=== PATIENT | female | born 1930 | race Caucasian/White ===

== ENCOUNTER 2017-09-09 15:17 | Emergency (ER) | payer MEDICARE, BC ==
[2017-09-09 18:05] LABS: ABS Basophils 0.1 10^3/ul (0-0.2); ABS Eosinophils 0.1 10^3/ul (0-0.6); ABS Lymphocytes 1.5 10^3/ul (1.0-4.8); ABS Monocytes 0.9 10^3/ul (0-0.8); ABS Neutrophils 5.4 10^3/ul (1.5-7.7); ABS Nucleated RBC 0 10^3/ul; Eosinophil % 1.7 % (0-6); Hematocrit 35 % (35-47); Hemoglobin 11.7 g/dl (12.0-16.0); Lymphocyte % 18.7 % (25-47); Mean Corpuscular HGB Conc 34 g/dl (31-36); Mean Corpuscular Hemoglobin 32 pg (27-31); Mean Corpuscular Volume 94 fL (80-97); Mean Platelet Volume 9.3 um3 (7.4-10.4); Nucleated Red Blood Cells % 0; Platelet Count 173 10^3/ul (150-450); Red Blood Count 3.69 10^6/ul (4.0-5.4); Red Cell Distribution Width 14 % (10.5-15)
[2017-09-09 18:18] LABS: EGFR Non-African American 54.8 (>60)
--- NOTE | 2017-09-09 19:07 | RAD ---
HISTORY: Sudden onset dizziness COMPARISONS: July 31, 2014 TECHNIQUE: Multiple contiguous axial CT scans were obtained of the head without intravenous contrast. FINDINGS: HEMORRHAGE/INFARCT: There is no hemorrhage or acute infarct. MASSES/SHIFT: There is no mass or shift. EXTRA-AXIAL SPACES: There are no extra-axial fluid collections. SULCI AND VENTRICLES: The sulci and ventricles are normal in size and position for the patient's stated age. CEREBRUM: There is hypoattenuation of the periventricular and subcortical white matter. There is encephalomalacia of the right frontal lobe and left anterior parietal lobe consistent with remote infarct BRAINSTEM: There are no focal parenchymal abnormalities. CEREBELLUM: There are chronic appearing infarcts of the right inferior cerebellum VESSELS: The vessels are grossly normal. PARANASAL SINUSES: There is opacification of the left ethmoid air cells and left maxillary sinus. There is osteitis of the surrounding bone. ORBITS: The orbits are unremarkable. BONES AND SOFT TISSUE: No bone or soft tissue abnormalities are noted. OTHER: None IMPRESSION: NO ACUTE INTRACRANIAL PATHOLOGY. 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 FINDINGS SUGGESTIVE OF LEFT MAXILLARY AND ETHMOID CHRONIC SINUSITIS
[2017-09-09 19:40] LABS: Urine Appearance Clear; Urine Blood Negative (Negative); Urine Color Straw; Urine Ketones Trace (Negative); Urine Protein Negative (Negative); Urine Specific Gravity 1.003 (1.010-1.030); Urine Urobilinogen Negative (Negative)
--- NOTE | 2017-09-09 20:47 | ED ---
Dizziness - HPI Summary HPI Summary: Complains of sudden onset dizziness only with standing and blurred vision starting this a.m. patient unable to say if symptoms were constant or intermittent. Symptoms have resolved by time of provider exam day. Patient also saw ophthalmology for the blurred vision today and was sent to the ED for further evaluation. Denies focal deficits, MEDEROS, change in mental status, facial droop, speech changes, fever, cough, sore throat, CP, SOB, N/V/D, abdominal pain , change in urinary BM. Denies history of dizziness for blurred vision. Medical history is HTN, A. fib, TIA, CVA, IBS. On ASA. - History Of Current Complaint Chief Complaint: EDDizziness Stated Complaint: DIZZY/TROUBLE WITH VISION Time Seen by Provider: 09/09/17 17:33 Hx Obtained From: Patient, Family/Criminal Justice Teacher - Allergies/Home Medications Allergies/Adverse Reactions: Allergies Allergy/AdvReac Type Severity Reaction Status Date / Time No Known Allergies Allergy Verified 12/25/15 14:17 Home Medications: Home Medications Aspirin EC TAB* [Ecotrin EC Low Dose 81 MG*] 81 mg PO DAILY 09/09/17 [History Confirmed 09/09/17] Atenolol TAB* [Tenormin TAB* 25 MG] 12.5 mg PO DAILY 09/09/17 [History Confirmed 09/09/17] Cyanocobalamin INJ * [Vitamin B12 INJ *] 1,000 mcg IM MONTHLY 09/09/17 [History Confirmed 09/09/17] Gabapentin CAP(*) [Neurontin 100 mg CAP(*)] 100 mg PO Q8HR PRN 09/09/17 [ History Confirmed 09/09/17] Ibuprofen TAB* [Advil TAB*] 400 mg PO Q6H PRN 09/09/17 [History Confirmed ] Vit A/Vit C/Vit E/Zinc/Copper [Preservision Areds Softgel] 1 cap PO BID [History Confirmed 09/09/17] methylPREDNISolone TAB* [Medrol TAB*] 4 mg PO SEE INSTRUCTIONS 09/09/17 [ History Confirmed 09/09/17] PMH/Surg Hx/FS Hx/Imm Hx Endocrine/Hematology History: Denies: Hx Diabetes, Hx Systemic Lupus Erythematosus Cardiovascular History: Denies: Hx Congestive Heart Failure, Hx Hypertension, Hx Pacemaker/ICD Respiratory History: Reports: Other Respiratory Problems/Disorders - post nasal drip w/ freq cough year aroung Denies: Hx Asthma, Hx Chronic Obstructive Pulmonary Disease (COPD) GI History: Reports: Other GI Disorders - "prone to diarrhea" History: Reports: Other Problems/Disorders - 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 Generalized arthritis Denies: Hx Rheumatoid Arthritis Sensory History: Reports: Hx Cataracts Denies: Hx Hearing Aid Opthamlomology History: Reports: Hx Cataracts Neurological History: Reports: Other Neuro Impairments/Disorders - seizures in teens-resolved in 20's Psychiatric History: Denies: Hx Panic Disorder - Cancer History Hx Chemotherapy: No - Surgical History Surgery Procedure, Year, and Place: appendectomy, childhood; hysterectomy in Infectious Disease History: No Infectious Disease History: Denies: Traveled Outside the [place] in Last 30 Days - Family History Known Family History: Positive: Other - No FHx of Ebola - Social History Alcohol Use: None Alcohol Amount: 1/2 bottle wine per day Substance Use Type: Reports: None Hx Tobacco Use: No Smoking Status (MU): Never Smoked Tobacco Review of Systems Constitutional: Negative Positive: Blurred Vision ENT: Negative Cardiovascular: Negative Respiratory: Negative Gastrointestinal: Negative Genitourinary: Negative Musculoskeletal: Negative Skin: Negative Neurological: Other Psychological: Normal All Other Systems Reviewed And Are Negative: Yes Physical Exam Triage Information Reviewed: Yes Vital Signs On Initial Exam: Initial Vitals Temp Pulse Resp BP Pulse Ox 98.5 F 85 15 135/71 98 09/09/17 15:42 09/09/17 15:42 09/09/17 15:42 09/09/17 15:42 09/09/17 15:42 Vital Signs Reviewed: Yes Appearance: Positive: Well-Appearing Skin: Positive: Warm Head/Face: Positive: Normal Head/Face Inspection Eyes: Positive: Normal Neck: Positive: Supple Respiratory/Lung Sounds: Positive: Clear to Auscultation Cardiovascular: Positive: Normal Abdomen Description: Positive: Nontender Musculoskeletal: Positive: Normal Neurological: Positive: Normal Psychiatric: Positive: Normal AVPU Assessment: Alert - Skye Coma Scale Best Eye Response: 4 - Spontaneous Best Motor Response: 6 - Obeys Commands Best Verbal Response: 5 - Oriented Coma Scale Total: 15 Diagnostics - Vital Signs Vital Signs Temp Pulse Resp BP Pulse Ox 09/09/17 15:42 98.5 F 85 15 135/71 98 - Laboratory Lab Results: Lab Results 09/09/17 09/09/17 09/09/17 Range/Units 17:49 17:49 17:49 WBC 8.0 (3.5-10.8) 10^3/ul RBC 3.69 L (4.0-5.4) 10^6/ul Hgb 11.7 L (12.0-16.0) g/dl Hct 35 (35-47) % MCV 94 (80-97) fL MCH 32 H (27-31) pg MCHC 34 (31-36) g/dl RDW 14 (10.5-15) % Plt Count 173 (150-450) 10^3/ul MPV 9.3 (7.4-10.4) um3 Neut % (Auto) 67.1 (38-83) % Lymph % (Auto) 18.7 L (25-47) % [place] % (Auto) 11.4 H (0-7) % Eos % (Auto) 1.7 (0-6) % Baso % (Auto) 1.1 (0-2) % Absolute Neuts (auto) 5.4 (1.5-7.7) 10^3/ul Absolute Lymphs (auto) 1.5 (1.0-4.8) 10^3/ul Absolute Monos (auto) 0.9 H (0-0.8) 10^3/ul Absolute Eos (auto) 0.1 (0-0.6) 10^3/ul Absolute Basos (auto) 0.1 (0-0.2) 10^3/ul Absolute Nucleated RBC 0 10^3/ul Nucleated RBC % 0 Sodium 131 L (139-145) mmol/L Potassium 4.0 (3.5-5.0) mmol/L Chloride 97 L (101-111) mmol/L Carbon Dioxide 25 (22-32) mmol/L Anion Gap 9 (2-11) mmol/L BUN 18 (6-24) mg/dL Creatinine 0.96 H (0.51-0.95) mg/dL Est GFR ( Amer) 70.5 (>60) Est GFR (Non-Af Amer) 54.8 (>60) BUN/Creatinine Ratio 18.8 (8-20) Glucose 90 (70-100) mg/dL Lactic Acid 1.1 (0.5-2.0) mmol/L Calcium 9.4 (8.6-10.3) mg/dL Total Bilirubin 0.50 (0.2-1.0) mg/dL AST 17 (13-39) U/L ALT 8 (7-52) U/L Alkaline Phosphatase 51 (34-104) U/L C-Reactive Protein 5.76 H (< 5.00) mg/L Total Protein 6.7 (6.4-8.9) g/dL Albumin 4.0 (3.2-5.2) g/dL Globulin 2.7 (2-4) g/dL Albumin/Globulin Ratio 1.5 (1-3) Urine Color Urine Appearance Urine pH (5-9) Ur Specific [place] (1.010-1.030) Urine Protein (Negative) Urine Ketones (Negative) Urine Blood (Negative) Urine Nitrate (Negative) Urine Bilirubin (Negative) Urine Urobilinogen (Negative) Ur Leukocyte Esterase (Negative) Urine WBC (Auto) (Absent) Urine RBC (Auto) (Absent) Ur Squamous Epith Cells (Absent) Urine Bacteria (Absent) Urine Glucose (Negative) 09/09/17 Range/Units 19:18 WBC (3.5-10.8) 10^3/ul RBC (4.0-5.4) 10^6/ul Hgb (12.0-16.0) g/dl Hct (35-47) % MCV (80-97) fL MCH (27-31) pg MCHC (31-36) g/dl RDW (10.5-15) % Plt Count (150-450) 10^3/ul MPV (7.4-10.4) um3 Neut % (Auto) (38-83) % Lymph % (Auto) (25-47) % [place] % (Auto) (0-7) % Eos % (Auto) (0-6) % Baso % (Auto) (0-2) % Absolute Neuts (auto) (1.5-7.7) 10^3/ul Absolute Lymphs (auto) (1.0-4.8) 10^3/ul Absolute Monos (auto) (0-0.8) 10^3/ul Absolute Eos (auto) (0-0.6) 10^3/ul Absolute Basos (auto) (0-0.2) 10^3/ul Absolute Nucleated RBC 10^3/ul Nucleated RBC % Sodium (139-145) mmol/L Potassium (3.5-5.0) mmol/L Chloride (101-111) mmol/L Carbon Dioxide (22-32) mmol/L Anion Gap (2-11) mmol/L BUN (6-24) mg/dL Creatinine (0.51-0.95) mg/dL Est GFR ( Amer) (>60) Est GFR (Non-Af Amer) (>60) BUN/Creatinine Ratio (8-20) Glucose (70-100) mg/dL Lactic Acid (0.5-2.0) mmol/L Calcium (8.6-10.3) mg/dL Total Bilirubin (0.2-1.0) mg/dL AST (13-39) U/L ALT (7-52) U/L Alkaline Phosphatase (34-104) U/L C-Reactive Protein (< 5.00) mg/L Total Protein (6.4-8.9) g/dL Albumin (3.2-5.2) g/dL Globulin (2-4) g/dL Albumin/Globulin Ratio (1-3) Urine Color Straw Urine Appearance Clear Urine pH 6.0 (5-9) Ur Specific [place] 1.003 L (1.010-1.030) Urine Protein Negative (Negative) Urine Ketones Trace A (Negative) Urine Blood Negative (Negative) Urine Nitrate Negative (Negative) Urine Bilirubin Negative (Negative) Urine Urobilinogen Negative (Negative) Ur Leukocyte Esterase 3+ A (Negative) Urine WBC (Auto) 3+(>20/hpf) A (Absent) Urine RBC (Auto) Trace(0-2/hpf) (Absent) Ur Squamous Epith Cells Present A (Absent) Urine Bacteria 1+ A (Absent) Urine Glucose Negative (Negative) Result Diagrams: 09/09/17 17:49 09/09/17 17:49 Lab Statement: Any lab studies that have been ordered have been reviewed, and results considered in the medical decision making process. - CT brain CT Interpretation: No Acute Changes CT Interpretation Completed By: Radiologist Dizzy Course/Dx - Course Course Of Treatment: Complains of sudden onset dizziness only with standing and blurred vision starting this a.m. patient unable to say if symptoms were constant or intermittent. Symptoms have resolved by time of provider examinee day. Patient also saw ophthalmology for blurred vision today and was sent to the ED for further evaluation. Denies focal deficits, MEDEROS, change in mental status, facial droop, speech changes, fever, cough, sore throat, CP, SOB, N/V/D , abdominal pain, change in urinary BM. Medical history is HTN, A. fib, TIA, CVA, IBS. Physical exam unremarkable. Neuro exam unremarkable. No symptoms here in the ED. Labs and imaging unremarkable except for UTI. Orthostatic positive. Patient refuses to ambulate here in ED, states her legs feel weak bilaterally. Baseline ambulates with cane. However patient is from assisted living with access to 24/7 assistance. Patient has been warned of potential for fall and possible subsequent hip fracture. Patient states she will call for assistance whenever she needs to ambulate until she is stable again. Caregiver is here with patient and also agrees to plan. Rx for Cipro - Diagnoses Provider Diagnoses: UTI (urinary tract infection) Discharge - Sign-Out/Discharge Documenting (check all that apply): Discharge/Admit/Transfer - Discharge Plan Condition: Stable Disposition: HOME Prescriptions: Ciprofloxacin HCl [Cipro] 500 mg PO BID 10 Days #20 tablet Patient Education Materials: Urinary Tract Infection in Women (ED), Urinary Tract Infection in Older Adults (ED) Referrals: Bette Park MD [Primary Care Provider] - Additional Instructions: Take antibiotics as directed. Follow-up with primary care. Return to the ED for any new or worsening symptoms - Billing Disposition and Condition Condition: STABLE Disposition: HOME
[2017-09-09] MEDS ORDERED: Ciprofloxacin TAB* 250 MG PO ONE ×2 (20:57→21:25)
[2017-09-09 21:34] VITALS: BP 131/67
--- NOTE | 2017-09-11 07:12 | ED ---
Progress - Progress Note Progress Note: Patient's preliminary urine culture reveals greater than 100,000 Escherichia coli. She was discharged with ciprofloxacin. No change in treatment at this time. Final results pending. Course/Dx - Course Course Of Treatment: Complains of sudden onset dizziness only with standing and blurred vision starting this a.m. patient unable to say if symptoms were constant or intermittent. Symptoms have resolved by time of provider examinee day. Patient also saw ophthalmology for blurred vision today and was sent to the ED for further evaluation. Denies focal deficits, MEDEROS, change in mental status, facial droop, speech changes, fever, cough, sore throat, CP, SOB, N/V/D , abdominal pain, change in urinary BM. Medical history is HTN, A. fib, TIA, CVA, IBS. Physical exam unremarkable. Neuro exam unremarkable. No symptoms here in the ED. Labs and imaging unremarkable except for UTI. Orthostatic positive. Patient refuses to ambulate here in ED, states her legs feel weak bilaterally. Baseline ambulates with cane. However patient is from assisted living with access to 24/7 assistance. Patient has been warned of potential for fall and possible subsequent hip fracture. Patient states she will call for assistance whenever she needs to ambulate until she is stable again. Caregiver is here with patient and also agrees to plan. Rx for Cipro - Diagnoses Provider Diagnoses: UTI (urinary tract infection) Discharge - Sign-Out/Discharge Documenting (check all that apply): Post-Discharge Follow Up - Discharge Plan Condition: Stable Disposition: HOME Prescriptions: Ciprofloxacin HCl [Cipro] 500 mg PO BID 10 Days #20 tablet Patient Education Materials: Urinary Tract Infection in Women (ED), Urinary Tract Infection in Older Adults (ED) Referrals: Bette Park MD [Primary Care Provider] - Additional Instructions: Take antibiotics as directed. Follow-up with primary care. Return to the ED for any new or worsening symptoms - Billing Disposition and Condition Condition: STABLE Disposition: HOME
== END 2017-09-09 21:33 | disposition home or self-care (01) ==
LOC: ED 15:17
DX: N39.0 Urinary tract infection, site not specified (principal); R42 Dizziness and giddiness; H53.8 Other visual disturbances; I10 Essential (primary) hypertension; I48.91 Unspecified atrial fibrillation; K58.9 Irritable bowel syndrome, unspecified; Z86.73 Personal history of transient ischemic attack (TIA), and cerebral infarction without residual deficits
CPT/HCPCS: 36415; 70450; 80053; 81003; 81015; 83605; 85025; 86140; 87077; 87086; 87186; 99282; A9270-GY

== ENCOUNTER 2017-09-26 11:11 | Emergency (ER) | payer MEDICARE, BC ==
[2017-09-26] MEDS ORDERED: NS 0.9% 1000 ML* 1,000 ML IV ONE (12:21)
--- NOTE | 2017-09-26 13:00 | RAD ---
HISTORY: SYNCOPE COMPARISONS: December 26, 2015 VIEWS: 1: frontal portable view of the chest at 12:44 PM FINDINGS: LINES AND TUBES: None. CARDIOMEDIASTINAL SILHOUETTE: The cardiomediastinal silhouette is normal for portable technique. PLEURA: The costophrenic angles are sharp. No pleural abnormalities are noted. LUNG PARENCHYMA: There is hyperinflation. ABDOMEN: The upper abdomen is clear. There is no subphrenic gas. BONES AND SOFT TISSUES: There is a scoliotic curvature of the spine. IMPRESSION: NO ACTIVE CARDIOPULMONARY DISEASE.
[2017-09-26 13:07] LABS: ABS Basophils 0.1 10^3/ul (0-0.2); ABS Eosinophils 0.1 10^3/ul (0-0.6); ABS Lymphocytes 0.8 10^3/ul (1.0-4.8); ABS Monocytes 0.7 10^3/ul (0-0.8); ABS Neutrophils 8.5 10^3/ul (1.5-7.7); ABS Nucleated RBC 0 10^3/ul; Eosinophil % 1.3 % (0-6); Hematocrit 34 % (35-47); Hemoglobin 11.3 g/dl (12.0-16.0); Lymphocyte % 8.1 % (25-47); Mean Corpuscular HGB Conc 34 g/dl (31-36); Mean Corpuscular Hemoglobin 32 pg (27-31); Mean Corpuscular Volume 95 fL (80-97); Mean Platelet Volume 9.4 um3 (7.4-10.4); Nucleated Red Blood Cells % 0.1; Platelet Count 149 10^3/ul (150-450); Red Blood Count 3.54 10^6/ul (4.00-5.40); Red Cell Distribution Width 15 % (10.5-15); White Blood Count 10.2 10^3/ul (3.5-10.8)
[2017-09-26 13:16] LABS: INR 0.93 (0.77-1.02)
[2017-09-26 13:27] LABS: EGFR Non-African American 53.4 (>60)
[2017-09-26 13:38] VITALS: BP 156/81
--- NOTE | 2017-09-26 18:20 | ED ---
Efren Rose Jade, scribed for Ramos Benito MD on 09/26/17 at 1222 . Syncope/Near Syncope - HPI Summary HPI Summary: Pt is an 87 y/o female BIBA s/p syncope. She was at religious when the episode occurred at 10:30. Pt is unsure if she had LOC, but as per witnesses there was LOC. Unsure of She had a normal BM at the time of the incident. Pt now feels cold, but otherwise fine. She denies CP, racing heart, irregular heart beat, runny nose, sore throat, abdominal pain, dysuria, or unilateral weakness. Pt states she ate this morning. PMHx AFib, depression, CVD, alcoholism, and vertigo problems. - History Of Current Complaint Chief Complaint: EDSyncope Time Seen by Provider: 09/26/17 11:59 Hx Obtained From: Patient, Family/Technician Telecommunication Systems - Friend Onset/Duration: Sudden Onset, Resolved Timing: Intermittent Episode Lasting - Unsure Context: Witnessed Activity At Onset: Other - Sitting at religious Aggravating Factor(s): Exertion - Tried to stand up - Allergies/Home Medications Allergies/Adverse Reactions: Allergies Allergy/AdvReac Type Severity Reaction Status Date / Time No Known Allergies Allergy Verified 12/25/15 14:17 PMH/Surg Hx/FS Hx/Imm Hx Endocrine/Hematology History: Denies: Hx Diabetes, Hx Systemic Lupus Erythematosus Cardiovascular History: Denies: Hx Congestive Heart Failure, Hx Hypertension, Hx Pacemaker/ICD Respiratory History: Reports: Other Respiratory Problems/Disorders - post nasal drip w/ freq cough year aroung Denies: Hx Asthma, Hx Chronic Obstructive Pulmonary Disease (COPD) GI History: Reports: Other GI Disorders - "prone to diarrhea" History: Reports: Other Problems/Disorders - 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 Generalized arthritis Denies: Hx Rheumatoid Arthritis Sensory History: Reports: Hx Cataracts Denies: Hx Hearing Aid Opthamlomology History: Reports: Hx Cataracts Neurological History: Reports: Other Neuro Impairments/Disorders - seizures in teens-resolved in 20's Psychiatric History: Reports: Hx Depression, Hx Substance Abuse - Alcoholism Denies: Hx Panic Disorder - Cancer History Hx Chemotherapy: No - Surgical History Surgery Procedure, Year, and Place: appendectomy, childhood; hysterectomy in 28 's Infectious Disease History: No Infectious Disease History: Denies: Traveled Outside the [place] in Last 30 Days - Family History Known Family History: Positive: Other - No FHx of Ebola - Social History Alcohol Use: None Alcohol Amount: 1/2 bottle wine per day Substance Use Type: Reports: None Hx Tobacco Use: No Smoking Status (MU): Never Smoked Tobacco Review of Systems Negative: Sore Throat, Nasal Discharge Cardiovascular: Negative - Racing heart, irregular heart beat Negative: Chest Pain Negative: Abdominal Pain Negative: dysuria Positive: Syncope - S/P. Negative: Weakness - Unilateral All Other Systems Reviewed And Are Negative: Yes Physical Exam - Summary Physical Exam Summary: General: well-appearing, no pain distress Skin: warm, color reflects adequate perfusion, dry Head: normal Eyes: EOMI, JADE ENT: normal. Hearing aids present. Neck: supple, nontender Respiratory: CTA, breath sounds present Cardiovascular: RRR Abdomen: soft, nontender Bowel: present Musculoskeletal: normal, strength/ROM intact Neurological: sensory/motor intact, A&O x3 Psychological: affect/mood appropriate GCS: 15 Triage Information Reviewed: Yes Vital Signs On Initial Exam: Initial Vitals Temp Pulse Resp BP Pulse Ox 98.2 F 58 18 102/58 99 09/26/17 11:26 09/26/17 11:26 09/26/17 11:26 09/26/17 11:26 09/26/17 11:26 Vital Signs Reviewed: Yes Diagnostics - Vital Signs Vital Signs Temp Pulse Resp BP Pulse Ox 09/26/17 11:26 98.2 F 58 18 102/58 99 - Laboratory Lab Results: Lab Results 09/26/17 09/26/17 09/26/17 Range/Units 13:01 13:01 13:01 WBC (3.5-10.8) 10^3/ul RBC (4.00-5.40) 10^6/ul Hgb (12.0-16.0) g/dl Hct (35-47) % MCV (80-97) fL MCH (27-31) pg MCHC (31-36) g/dl RDW (10.5-15) % Plt Count (150-450) 10^3/ul MPV (7.4-10.4) um3 Neut % (Auto) (38-83) % Lymph % (Auto) (25-47) % [place] % (Auto) (0-7) % Eos % (Auto) (0-6) % Baso % (Auto) (0-2) % Absolute Neuts (auto) (1.5-7.7) 10^3/ul Absolute Lymphs (auto) (1.0-4.8) 10^3/ul Absolute Monos (auto) (0-0.8) 10^3/ul Absolute Eos (auto) (0-0.6) 10^3/ul Absolute Basos (auto) (0-0.2) 10^3/ul Absolute Nucleated RBC 10^3/ul Nucleated RBC % INR (Anticoag Therapy) 0.93 (0.77-1.02) APTT 30.4 (26.0-36.3) seconds Sodium 137 (135-145) mmol/L Potassium 4.7 (3.5-5.0) mmol/L Chloride 107 (101-111) mmol/L Carbon Dioxide 25 (22-32) mmol/L Anion Gap 5 (2-11) mmol/L BUN 21 (6-24) mg/dL Creatinine 0.98 H (0.51-0.95) mg/dL Est GFR ( Amer) 68.7 (>60) Est GFR (Non-Af Amer) 53.4 (>60) BUN/Creatinine Ratio 21.4 H (8-20) Glucose 114 H (70-100) mg/dL Lactic Acid (0.5-2.0) mmol/L Calcium 8.4 L (8.6-10.3) mg/dL Magnesium 1.7 L (1.9-2.7) mg/dL Total Bilirubin 0.50 (0.2-1.0) mg/dL AST 16 (13-39) U/L ALT 10 (7-52) U/L Alkaline Phosphatase 48 (34-104) U/L Total Creatine Kinase 22 (10-223) U/L CK-MB (CK-2) 1.1 (0.6-6.3) ng/mL Troponin I 0.01 (<0.04) ng/mL C-Reactive Protein 5.34 H (< 5.00) mg/L B-Natriuretic Peptide 393 H ( - 100) pg/mL Total Protein 5.6 L (6.4-8.9) g/dL Albumin 3.3 (3.2-5.2) g/dL Globulin 2.3 (2-4) g/dL Albumin/Globulin Ratio 1.4 (1-3) TSH 0.82 (0.34-5.60) mcIU/mL 09/26/17 09/26/17 Range/Units 13:01 13:01 WBC 10.2 (3.5-10.8) 10^3/ul RBC 3.54 L (4.00-5.40) 10^6/ul Hgb 11.3 L (12.0-16.0) g/dl Hct 34 L (35-47) % MCV 95 (80-97) fL MCH 32 H (27-31) pg MCHC 34 (31-36) g/dl RDW 15 (10.5-15) % Plt Count 149 L (150-450) 10^3/ul MPV 9.4 (7.4-10.4) um3 Neut % (Auto) 82.9 (38-83) % Lymph % (Auto) 8.1 L (25-47) % [place] % (Auto) 6.8 (0-7) % Eos % (Auto) 1.3 (0-6) % Baso % (Auto) 0.9 (0-2) % Absolute Neuts (auto) 8.5 H (1.5-7.7) 10^3/ul Absolute Lymphs (auto) 0.8 L (1.0-4.8) 10^3/ul Absolute Monos (auto) 0.7 (0-0.8) 10^3/ul Absolute Eos (auto) 0.1 (0-0.6) 10^3/ul Absolute Basos (auto) 0.1 (0-0.2) 10^3/ul Absolute Nucleated RBC 0 10^3/ul Nucleated RBC % 0.1 INR (Anticoag Therapy) (0.77-1.02) APTT (26.0-36.3) seconds Sodium (135-145) mmol/L Potassium (3.5-5.0) mmol/L Chloride (101-111) mmol/L Carbon Dioxide (22-32) mmol/L Anion Gap (2-11) mmol/L BUN (6-24) mg/dL Creatinine (0.51-0.95) mg/dL Est GFR ( Amer) (>60) Est GFR (Non-Af Amer) (>60) BUN/Creatinine Ratio (8-20) Glucose (70-100) mg/dL Lactic Acid 1.0 (0.5-2.0) mmol/L Calcium (8.6-10.3) mg/dL Magnesium (1.9-2.7) mg/dL Total Bilirubin (0.2-1.0) mg/dL AST (13-39) U/L ALT (7-52) U/L Alkaline Phosphatase (34-104) U/L Total Creatine Kinase (10-223) U/L CK-MB (CK-2) (0.6-6.3) ng/mL Troponin I (<0.04) ng/mL C-Reactive Protein (< 5.00) mg/L B-Natriuretic Peptide ( - 100) pg/mL Total Protein (6.4-8.9) g/dL Albumin (3.2-5.2) g/dL Globulin (2-4) g/dL Albumin/Globulin Ratio (1-3) TSH (0.34-5.60) mcIU/mL Result Diagrams: 09/26/17 13:01 09/26/17 13:01 Lab Statement: Any lab studies that have been ordered have been reviewed, and results considered in the medical decision making process. - Radiology CXR Xray Interpretation: No Acute Changes - NO ACTIVE CARDIOPULMONARY DISEASE. ED physician reviewed radiology report. Radiology Interpretation Completed By: Radiologist - EKG 12:27 Cardiac Rate: Bradycardia - 55 bpm EKG Rhythm: Sinus Rhythm ST Segment: Normal EKG Interpretation: Prolonged IA interval at 266 Course/Dx Course Of Treatment: DISCUSSED RESULTS WITH THE PATIENT. SHE DENIES ANY CHEST PAIN OR PALPITATIONS. SHE DECLINED ADMISSION. F/U PMD; RETURN IF WORSE. - Diagnoses Provider Diagnoses: Syncope Discharge - Sign-Out/Discharge Documenting (check all that apply): Discharge/Admit/Transfer - Discharge - Discharge Plan Condition: Stable Disposition: HOME Patient Education Materials: Syncope (ED) Referrals: Bette Park MD [Primary Care Provider] - Additional Instructions: FOLLOW UP WITH DR YARBROUGH. RETURN TO THE EMERGENCY DEPARTMENT FOR ANY WORSENING OF YOUR CONDITION; CHEST PAIN, SHORTNESS OF BREATH, YOU FEEL ILL OR QUESTIONS OR CONCERNS. - Billing Disposition and Condition Condition: STABLE Disposition: Home The documentation as recorded by the Efren syed Jade accurately reflects the service I personally performed and the decisions made by me, Ramos Benito MD.
== END 2017-09-26 14:05 | disposition home or self-care (01) ==
LOC: ED 11:11
DX: R55 Syncope and collapse (principal); I48.91 Unspecified atrial fibrillation; F32.9 Major depressive disorder, single episode, unspecified; I25.10 Atherosclerotic heart disease of native coronary artery without angina pectoris; R42 Dizziness and giddiness; F10.20 Alcohol dependence, uncomplicated; Z86.12 Personal history of poliomyelitis
CPT/HCPCS: 36415; 71045; 80053; 82550; 82553; 83605; 83735; 83880; 84443; 84484; 85025; 85610; 85730; 86140; 93005; 99284

== ENCOUNTER 2018-07-27 11:27 | Emergency (ER) | payer MEDICARE, BC ==
--- NOTE | 2018-07-27 11:34 | ED ---
Shortness of Breath - HPI Summary HPI Summary: An 87 y/o F brought in by ambulance presents to ED with c/o SOB onset yesterday. Alleviating factors: rest. She also has L wrist swelling for past week. She denies fall or trauma. Denies fever, chills, cough, CP. Per EMS, her O2 sat was in the low 80s en route, they placed her on 2L O2. Per daughter, the patient's BP has been low this past week. She was on Atenolol, but Dr. Park, PCP, took her off it. PMHx: a-fib, stroke, denies respiratory hx. Non-smoker. Daily wine. - History of Current Complaint Hx Obtained From: Patient, Family/Rn Pacu - daughter, EMS Onset/Duration: Lasting Days - yesterday, Still Present Timing: Constant Current Severity: Mild Dyspnea At: Exertion Alleviating Factors: Other - rest Associated Signs & Symptoms: Edema - L wrist swelling - Allergy/Home Medications Allergies/Adverse Reactions: Allergies Allergy/AdvReac Type Severity Reaction Status Date / Time No Known Allergies Allergy Verified 10/21/17 14:24 Home Medications: Home Medications Apixaban* [Eliquis*] 2.5 mg PO BID 07/27/18 [History Confirmed 07/27/18] Calcium Polycarbophil TAB* [Fibercon TAB*] 1,875 mg PO DAILY 07/27/18 [History Confirmed 07/27/18] Cyanocobalamin (Vitamin B-12) [B-12] 2,500 mcg PO DAILY 07/27/18 [History Confirmed 07/27/18] Diphenoxylat/Atrop 2.5-0.025M* [Lomotil TAB*] 1 tab PO Q4HR PRN 07/27/18 [ History Confirmed 07/27/18] Ondansetron ODT TAB* [Zofran 4 MG Odt TAB*] 4 mg PO BID PRN 07/27/18 [History Confirmed 07/27/18] PMH/Surg Hx/FS Hx/Imm Hx Previously Healthy: No Endocrine/Hematology History: Denies: Hx Diabetes, Hx Systemic Lupus Erythematosus Cardiovascular History: Reports: Hx Atrial Fibrillation Denies: Hx Congestive Heart Failure, Hx Hypertension, Hx Pacemaker/ICD Respiratory History: Reports: Other Respiratory Problems/Disorders - post nasal drip w/ freq cough year aroung Denies: Hx Asthma, Hx Chronic Obstructive Pulmonary Disease (COPD) GI History: Reports: Other GI Disorders - "prone to diarrhea" History: Reports: Other Problems/Disorders - 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 Generalized arthritis Denies: Hx Rheumatoid Arthritis Sensory History: Reports: Hx Cataracts, Hx Hearing Aid Opthamlomology History: Reports: Hx Cataracts Neurological History: Reports: Other Neuro Impairments/Disorders - seizures in teens-resolved in 20's Psychiatric History: Reports: Hx Depression, Hx Substance Abuse - Alcoholism Denies: Hx Panic Disorder - Cancer History Hx Chemotherapy: No - Surgical History Surgery Procedure, Year, and Place: appendectomy, childhood;. hysterectomy in s - Family History Known Family History: Positive: Other - No FHx of Ebola - Social History Occupation: Retired Lives: At [facility] [employer] Alcohol Use: Daily Alcohol Amount: 1/2 bottle wine per day Hx Substance Use: No Substance Use Type: Reports: None Hx Tobacco Use: No Smoking Status (MU): Never Smoked Tobacco Review of Systems Negative: Fever, Chills Negative: Chest Pain Positive: Shortness Of Breath. Negative: Cough Musculoskeletal: Other - pos: L wrist edema All Other Systems Reviewed And Are Negative: Yes Physical Exam - Summary Physical Exam Summary: Appearance: Well-appearing, Well-nourished, elderly F lying in bed comfortably in no apparent distress Skin: Warm, dry, no obvious rash Eyes: sclera anicteric, no conjunctival pallor ENT: mucous membranes moist, pharynx appears normal Neck: Supple, nontender Respiratory: Clear to auscultation, no signs of respiratory distress Cardiovascular: Irregular rhythm but normal rate. Normal S1, S2. No murmurs. Normal distal pulses in tibial and radial bilaterally. Abdomen: Soft, nontender, normal active bowel sounds present Musculoskeletal: Normal, Strength/ROM Intact. L wrist is swollen, erythematous and warm. Neurological: A&Ox3, awake and alert, mentation is normal, speech is fluent and appropriate Psychiatric: affect is normal, does not appear anxious or depressed Triage Information Reviewed: Yes Vital Signs Reviewed: Yes Diagnostics - Laboratory Result Diagrams: 07/27/18 12:11 07/27/18 12:11 Lab Statement: Any lab studies that have been ordered have been reviewed, and results considered in the medical decision making process. - Radiology L WRIST Radiology Interpretation Completed By: Radiologist Summary of Radiographic Findings: IMPRESSION: OSTEOPENIA. OSTEOARTHRITIS. NO ACUTE OSSEOUS INJURY. IF SYMPTOMS PERSIST, RECOMMEND REPEAT IMAGING. ED provider has reviewed this report. CXR Radiology Interpretation Completed By: Radiologist Summary of Radiographic Findings: IMPRESSION: No active cardiopulmonary disease. ED provider has reviewed this report. - CT Chest CTA CT Interpretation Completed By: Radiologist Summary of CT Findings: IMPRESSION: 1. NO PULMONARY ARTERIAL FILLING DEFECT TO SUGGEST PULMONARY EMBOLISM. 2. CARDIOMEGALY. 3. SMALL PERICARDIAL EFFUSION. 4. ATHEROSCLEROSIS. 5. TRACE BILATERAL PLEURAL EFFUSIONS. ED provider has reviewed this report. - EKG 1144 Cardiac Rate: NL - 84 bpm EKG Rhythm: Atrial Flutter - consistent with variable block Re-Evaluation - Re-Evaluation 1 Re-Evaluation Time: 12:50 Comment: Discussing results with pt and daughter. 2 Re-Evaluation Time: 13:57 Comment: Discussing CTA results with pt. 3 Re-Evaluation Time: 14:15 Comment: Discussing consult with Dr. Barker (Dr. Park is out of town) and plan for discharge. Course/Dx - Course Course Of Treatment: Pt is an 87 y/o F presenting with SOB onset yesterday and L wrist swelling. She denies fall, trauma. Lab work shows Ddimer: 547, low sodium and chloride, BUN/C: 20.5, glucose: 104, BNP: 270. EKG shows atrial flutter at 84 bpm with variable block. L Wrist XR shows osteopenia, osteoarthritis, no acute finding. CXR shows no active cardiopulmonary disease. Chest CT shows "1. NO PULMONARY ARTERIAL FILLING DEFECT TO SUGGEST PULMONARY EMBOLISM. 2. CARDIOMEGALY. 3. SMALL PERICARDIAL EFFUSION. 4. ATHEROSCLEROSIS. 5. TRACE BILATERAL PLEURAL EFFUSIONS.". Will discharge patient home. - Diagnoses Provider Diagnoses: Dyspnea on exertion - Physician Notifications Discussed Care of Patient With: Beatrice Barker - PCP Time Discussed With Above Provider: 14:05 Instructed by Provider To: Other - Recommends starting low-dose Atenolol Discharge - Sign-Out/Discharge Documenting (check all that apply): Patient Departure - DC Patient Received Moderate/Deep Sedation with Procedure: No - Discharge Plan Condition: Good Disposition: HOME Prescriptions: Atenolol TAB* [Tenormin TAB* 25 MG] 12.5 mg PO EVERY OTHER DAY #15 tab Patient Education Materials: Dyspnea (ED) Referrals: Bette Park MD [Primary Care Provider] - Additional Instructions: We did not find a definite reason for your symptoms despite a fairly extensive workup here today. I have spoken with Dr. Barker, covering for Dr. Park, and we went over all your tests and medications. She would like to start you back on a very low dose of the atenolol that you were on for now. If your breathing gets worse, or you develop chest pain or other new worrisome symptoms , we should see you back here. - Billing Disposition and Condition Condition: GOOD Disposition: Home - Attestation Statements Document Initiated by Maria G: Yes Documenting Scribe: Clint Aguirre Provider For Whom Maria G is Documenting (Include Credential): Dr. Jimmy Bell MD Scribe Attestation: I, Clint Aguirre, ponceibed for Dr. Jimmy Bell MD on 07/30/18 at 0625. Scribe Documentation Reviewed: Yes Provider Attestation: The documentation as recorded by the Clint syed accurately reflects the service I personally performed and the decisions made by me, Dr. Jimmy Bell MD Status of Scribhilda Document: Viewed
[2018-07-27 12:35] LABS: ABS Basophils 0 10^3/ul (0-0.2); ABS Eosinophils 0 10^3/ul (0-0.6); ABS Lymphocytes 1.1 10^3/ul (1.0-4.8); ABS Monocytes 1.2 10^3/ul (0-0.8); ABS Neutrophils 8.3 10^3/ul (1.5-7.7); ABS Nucleated RBC 0 10^3/ul; Eosinophil % 0.4 %; Hematocrit 36 % (33-41); Lymphocyte % 10.7 %; Mean Corpuscular HGB Conc 33 g/dL (31-36); Mean Corpuscular Hemoglobin 31 pg (27-31); Mean Corpuscular Volume 94 fL (80-97); Mean Platelet Volume 8.3 fL (7.4-10.4); Nucleated Red Blood Cells % 0.2; Platelet Count 359 10^3/uL (150-450); Red Blood Count 3.82 10^6 /uL (3.70-4.87); Red Cell Distribution Width 13 % (10.5-15); White Blood Count 10.7 10^3/uL (3.5-10.8)
[2018-07-27 12:46] LABS: Albumin 3.4 g/dL (3.2-5.2); BUN/Creatinine Ratio 20.5 (8-20); Calcium 8.9 mg/dL (8.6-10.3); EGFR African American 84.1 (>60); EGFR Non-African American 69.5 (>60); Globulin 3.3 g/dL (2-4); Potassium 4.3 mmol/L (3.5-5.0); Total Bilirubin 0.7 mg/dL (0.2-1.0); Total Protein 6.7 g/dL (6.4-8.9)
[2018-07-27 12:47] LABS: Troponin I 0.02 ng/mL (<0.04)
[2018-07-27] MEDS ORDERED: Iodixanol* (CONTRAST) 320 MG/ML 100 ML SDV IV ONE (12:57)
[2018-07-27] MEDS ORDERED: Atenolol TAB* 25 MG PO ONE (14:09)
[2018-07-27 15:44] VITALS: BP 132/84
== END 2018-07-27 15:43 | disposition home or self-care (01) ==
LOC: ED 11:27
DX: R06.00 Dyspnea, unspecified (principal); M85.80 Other specified disorders of bone density and structure, unspecified site; I48.91 Unspecified atrial fibrillation; F32.9 Major depressive disorder, single episode, unspecified; I51.7 Cardiomegaly; I31.3 Pericardial effusion (noninflammatory); I70.90 Unspecified atherosclerosis
CPT/HCPCS: 36415; 71046; 71275; 80053; 83880; 84484; 85025; 85379; 93005; 99284; Q9967